=== PATIENT | male | born 1985 | race Caucasian/White ===

== ENCOUNTER 2017-02-09 12:11 | Emergency (ER) | payer OTHER ==
[~2017-02-09 12:11] MED LIST: ALPR.5 PO; OMEP20TA PO; PANT40TA3 PO
[2017-02-09] MEDS ORDERED: IBUPROFEN 800 MG TAB PO ONE (12:30)
--- NOTE | 2017-02-09 12:41 | PD ---
HPI Chief Complaint: Injury Time Seen by Provider: 12:26 Travel History International Travel<30 days: No Contact w/Intl Traveler<30days: No Traveled to known affect area: No History of Present Illness HPI This 31-year-old male, [employer] employee, with complaint of left great toe pain and bleeding after a cooling machine fell over injuring his toe. Denies paresthesias, loss of sensation to the affected toe. Has not taken any medication or drainage went to alleviate his symptoms. Toe is bandaged and bleeding is controlled. Up-to-date on tetanus vaccination. Allergies to amoxicillin. Has no medical complaints. No other modifying factors or associated signs and symptoms. PFSH Past Medical History Medical History: Denies Significant Hx Past Surgical History Surgical History: No Previous Surgery Social History Alcohol Use: Yes Tobacco Use: No Allergies-Medications (Allergen,Severity, Reaction): Coded Allergies: amoxicillin (Unverified Allergy, Unknown, 01/14/17) Reported Meds & Prescriptions Reported Meds & Active Scripts Active Ibuprofen 800 Mg Tab 800 Mg PO Q6HR PRN Pantoprazole (Pantoprazole Sodium) 40 Mg Tab 40 Mg PO DAILY Reported Omeprazole 20 Mg Tab 20 Mg PO DAILY Xanax (Alprazolam) 0.5 Mg Tab 0.5 Mg PO Q4H PRN Review of Systems Except as stated in HPI: all other systems reviewed are Neg Physical Exam Narrative GENERAL: Well-nourished, well-developed male patient, in no acute distress SKIN: Warm and dry. HEAD: Atraumatic. Normocephalic. EYES: Pupils equal and round. No scleral icterus. No injection or drainage. ENT: Mucosa pink and moist. Airway patent. NECK: Trachea midline. CARDIOVASCULAR: Regular rate. RESPIRATORY: No accessory muscle use. GASTROINTESTINAL: Flat. MUSCULOSKELETAL: Left great toe with subungual hematoma noted with minimal amount of bright red drainage around the toenail; toenail intact; sensory intact ; less than 3 second cap refill; no obvious deformity; without erythema, edema. Left lower extremities supple and non-tense with 2+ pedal pulse and sensory intact. No obvious deformities. No clubbing. No cyanosis. No edema. NEUROLOGICAL: Awake and alert. Oriented 3. No obvious cranial nerve deficits. Motor grossly within normal limits. Normal speech. PSYCHIATRIC: Appropriate mood and affect; insight and judgment normal. Data Data Orders Orders Ibuprofen (Motrin) (02/09/17 12:30) Toe (Min 2vws) (02/09/17 ) MDM Medical Decision Making Medical Screen Exam Complete: Yes Emergency Medical Condition: Yes Medical Record Reviewed: Yes Differential Diagnosis Toe contusion, subungual hematoma, toe fracture Narrative Course 31-year-old male with left great toe injury and subungual hematoma. Ibuprofen administered in the ER. Left great toe x-ray ordered. 1304: Left great toe x-ray with no acute findings. I offered the patient a postop shoe for support and crutches and he declined. Wound care provided. Ibuprofen prescribed for home. Instructed patient to follow up with primary care provider. Patient verbalizes understanding and agreement with treatment plan. Patient is medically cleared and stable for discharge. Discussed reasons to return to the emergency department. Patient agrees with treatment plan. The patients vital signs are stable and the patient is stable for outpatient follow-up and treatment. Patient discharged home, stable and in no acute distress. Diagnosis Primary Impression: Toe injury Qualified Codes: S99.922A - Unspecified injury of left foot, initial encounter Additional Impression: Hematoma, subungual, great toe, left Qualified Codes: S90.212A - Contusion of left great toe with damage to nail, initial encounter Referrals: Roya ([facility] [place] Human Resources Primary Care Physician Patient Instructions: Crutch Instructions (ED), General Instructions Departure Forms: Tests/Procedures, Work Release Enter return to work date: Feb 09, 2017 Additional Instructions: Tylenol or ibuprofen instructed not needed for pain and inflammation Ice to affected toe for pain and inflammation Avoid aggravating activity Follow-up with primary care provider Return to the emergency department immediately with worsening of symptoms Med/Other Pt SpecificInfo: Prescription(s) given Scripts Ibuprofen (Ibuprofen) 800 Mg Tab 800 MG PO Q6HR Y for PAIN, #30 TAB 0 Refills Prov: Ana Lee 02/09/17 Disposition: 01 DISCHARGE HOME Condition: Stable Ana Lee Feb 09, 2017 12:41
--- NOTE | 2017-02-09 13:00 | RADRPT ---
EXAM DATE/TIME: 02/09/2017 12:34 [facility] COMPARISON: No previous studies available for comparison. INDICATIONS : Crushing injury to left great toe. MEDICAL HISTORY : None. SURGICAL HISTORY : None. ENCOUNTER: Initial ACUITY: 1 day PAIN SCORE: 6/10 LOCATION: Left hallux FINDINGS: Examination of the first digit of the left foot demonstrates no evidence of fracture or dislocation. No radiopaque foreign bodies are seen. The soft tissues are intact. CONCLUSION: No evidence of fracture or dislocation. Vern Zaidi MD on February 09, 2017 at 12:59 Board Certified Radiologist. This report was verified electronically.
[2017-02-09] MEDS ORDERED: IBUP800T23 PO (13:05)
== END 2017-02-09 13:12 | disposition home or self-care (01) ==
LOC: NEPK 12:11
DX: S90.212A Contusion of left great toe with damage to nail, initial encounter (principal); W20.8XXA Other cause of strike by thrown, projected or falling object, initial encounter
CPT/HCPCS: 73660; 99283

== ENCOUNTER 2017-07-19 12:16 | Emergency (ER) | payer OTHER ==
[~2017-07-19] VITALS: Ht 180.3 cm; Wt 87.0 kg
[~2017-07-19 12:16] MED LIST changes: +IBUP1TAB7 PO; -OMEP20TA PO; +OMEP20TA93 PO
[2017-07-19 12:18] VITALS: BP 120/76; PULSE 68; RESP 12; TEMP 99; O2SAT 98
--- NOTE | 2017-07-19 13:01 | PD ---
HPI Chief Complaint: Dizziness Time Seen by Provider: 13:01 Travel History International Travel<30 days: No Contact w/Intl Traveler<30days: No Traveled to known affect area: No History of Present Illness HPI 32-year-old male presents the emergency Department with worsening dizzy spells, with nausea and dry heaves today. Patient states no fever but is noted to have a temperature of 99 orally in triage today. Patient states mild headache in the posterior scalp yesterday afternoon. Patient states this started last Friday and has progressively worsened over the past week. He states he gets vertiginous symptoms with certain movements, which has gotten worse in the past several days. Patient states no headache currently. He denies PFSH Past Medical History Anxiety: Yes Heart Rhythm Problems: Yes (questional SVT) GERD: Yes Tetanus Vaccination: Unknown Influenza Vaccination: Yes Past Surgical History Appendectomy: Yes Eye Surgery: Yes (lasik) Social History Alcohol Use: Yes (occasional) Tobacco Use: Yes (cigar on occasion) Substance Use: No Allergies-Medications (Allergen,Severity, Reaction): Coded Allergies: amoxicillin (Unverified Allergy, Unknown, 07/19/17) Reported Meds & Prescriptions Reported Meds & Active Scripts Active Ibuprofen 800 Mg Tab 800 Mg PO Q6HR PRN Reported Omeprazole 20 Mg Tab 20 Mg PO DAILY Review of Systems Except as stated in HPI: all other systems reviewed are Neg General / Constitutional: No: Fever Eyes: No: Visual changes HENT: Positive: Vertigo, No: Headaches, Lightheadedness, Sore Throat, Rhinitis , Rhinorrhea, Congestion, Nosebleed, Neck Stiffness, Neck Pain, Dental Difficulties, Earache Cardiovascular: No: Chest Pain or Discomfort Respiratory: No: Shortness of Breath Gastrointestinal: No: Abdominal Pain Genitourinary: No: Dysuria Musculoskeletal: No: Pain Skin: No Rash Neurologic: No: Weakness Psychiatric: No: Depression Endocrine: No: Polydipsia Hematologic/Lymphatic: No: Easy Bruising Physical Exam Narrative GENERAL: Patient appears well SKIN: Warm and dry. Normal color. Normal turgor. No rash HEAD: Atraumatic. Normocephalic. No sinus tenderness to percussion or palpation EYES: Pupils equal and round. No scleral icterus. No injection or drainage. Patient has reproducible nystagmus which is right going looking to the left, and when he looks up. ENT: No nasal bleeding or discharge. Mucous membranes pink and moist. TMs are clear bilaterally. Posterior pharynx is unremarkable. No signs of postnasal drip or sinusitis. NECK: Trachea midline. Supple and nontender. Patient is able to put his chin to his chest without difficulty. CARDIOVASCULAR: Regular rate and rhythm. RESPIRATORY: No accessory muscle use. Clear to auscultation. Breath sounds equal bilaterally. GASTROINTESTINAL: Abdomen soft, non-tender, nondistended. Hepatic and splenic margins not palpable. MUSCULOSKELETAL: Extremities without clubbing, cyanosis, or edema. No obvious deformities. NEUROLOGICAL: Awake and alert. No obvious cranial nerve deficits. Motor grossly within normal limits. Five out of 5 muscle strength in the arms and legs. Normal speech. PSYCHIATRIC: Appropriate mood and affect; insight and judgment normal. Data Data Last Documented VS Vital Signs Date Time Temp Pulse Resp B/P (MAP) Pulse Ox O2 Delivery O2 Flow Rate FiO2 07/19/17 14:00 58 13 117/61 (79) 62 12 121/73 (89) 64 13 127/81 (96) 07/19/17 12:18 99.0 98 Orders Orders Complete Blood Count With Diff (07/19/17 13:10) Comprehensive Metabolic Panel (07/19/17 13:10) Ecg Monitoring (07/19/17 13:10) Iv Access Insert/Monitor (07/19/17 13:10) Oximetry (07/19/17 13:10) Meclizine (Antivert) (07/19/17 13:15) Ondansetron Inj (Zofran Inj) (07/19/17 13:15) Sodium Chloride 0.9% Flush (Ns Flush) (07/19/17 13:15) Sodium Chlor 0.9% 1000 Ml Inj (Ns 1000 M (07/19/17 13:10) Orthostatic Vital Signs (07/19/17 13:10) Influenzae A/B Antigen (07/19/17 13:18) Labs Laboratory Tests Test 07/19/17 13:30 White Blood Count 5.3 TH/MM3 Red Blood Count 4.89 MIL/MM3 Hemoglobin 14.5 GM/DL Hematocrit 41.6 % Mean Corpuscular Volume 85.1 FL Mean Corpuscular Hemoglobin 29.7 PG Mean Corpuscular Hemoglobin Concent 34.9 % Red Cell Distribution Width 13.3 % Platelet Count 183 TH/MM3 Mean Platelet Volume 8.1 FL Neutrophils (%) (Auto) 66.5 % Lymphocytes (%) (Auto) 25.7 % Monocytes (%) (Auto) 5.3 % Eosinophils (%) (Auto) 1.9 % Basophils (%) (Auto) 0.6 % Neutrophils # (Auto) 3.5 TH/MM3 Lymphocytes # (Auto) 1.4 TH/MM3 Monocytes # (Auto) 0.3 TH/MM3 Eosinophils # (Auto) 0.1 TH/MM3 Basophils # (Auto) 0.0 TH/MM3 CBC Comment DIFF FINAL Differential Comment Blood Urea Nitrogen 14 MG/DL Creatinine 1.14 MG/DL Random Glucose 92 MG/DL Total Protein 7.2 GM/DL Albumin 4.3 GM/DL Calcium Level 8.7 MG/DL Alkaline Phosphatase 73 U/L Aspartate Amino Transf (AST/SGOT) 16 U/L Alanine Aminotransferase (ALT/SGPT) 24 U/L Total Bilirubin 1.5 MG/DL Sodium Level 139 MEQ/L Potassium Level 4.2 MEQ/L Chloride Level 104 MEQ/L Carbon Dioxide Level 31.1 MEQ/L Anion Gap 4 MEQ/L Estimat Glomerular Filtration Rate 74 ML/MIN MDM Medical Decision Making Medical Screen Exam Complete: Yes Emergency Medical Condition: Yes Differential Diagnosis Upper respiratory infection. Influenza. Vestibulitis. Stroke. Benign positional vertigo. Narrative Course Patient is medically stable at time of exam per Labs ordered including CBC, CMP, and rapid influenza. IV access is obtained the patient is given 1000 mL normal saline bolus in addition to Zofran 4 mg IV Patient is given 25 mg meclizine p.o. Patient discussed with Dr. Delgadillo and CT scan is not felt warranted Labs are all within normal limits. Patient will be treated for vestibulitis. He is given a prescription for Zofran 4 mg every 6 hours as needed #12 Patient also given meclizine 25 mg 1 every 6 hours as needed #20. Patient should follow-up with his primary care physician or neurologist as needed. Patient can return to the emergency department with worsening symptoms if necessary. Diagnosis Primary Impression: Benign positional vertigo Qualified Codes: H81.10 - Benign paroxysmal vertigo, unspecified ear Referrals: Primary Care Physician Patient Instructions: Benign Paroxysmal Positional Vertigo (ED), General Instructions Departure Forms: Work Release Enter return to work date: Jul 20, 2017 Additional Instructions: Labs are all within normal limits. Patient will be treated for vestibulitis. He is given a prescription for Zofran 4 mg every 6 hours as needed #12 Patient also given meclizine 25 mg 1 every 6 hours as needed #20. Patient should follow-up with his primary care physician or neurologist as needed. Patient can return to the emergency department with worsening symptoms if necessary. Med/Other Pt SpecificInfo: Prescription(s) given Disposition: 01 DISCHARGE HOME Condition: Stable Cory Trejo Jul 19, 2017 13:01
[2017-07-19] MEDS ORDERED: SODIUM CHLOR 0.9% 1000 ML INJ 1,000 ML IV ONE (13:10)
[2017-07-19] MEDS ORDERED: SODIUM CHLORIDE 0.9% FLUSH 10 ML FLUSH IVF PRN (13:15)
[2017-07-19] MEDS ORDERED: ONDANSETRON HCL 4 MG/2 ML VIAL IVP ONE (13:15)
[2017-07-19] MEDS ORDERED: MECLIZINE HCL 25 MG TAB PO ONE (13:15)
[2017-07-19 13:58] LABS: AUTOMATED NEUTROPHIL # 3.5 TH/MM3 (1.8-7.7); BASOPHIL % 0.6 % (0.0-2.0); EOSINOPHIL # 0.1 TH/MM3 (0-0.4); EOSINOPHIL % 1.9 % (0.0-4.0); HEMATOCRIT 41.6 % (39.0-51.0); HEMOGLOBIN 14.5 GM/DL (13.0-17.0); LYMPH % 25.7 % (9.0-44.0); LYMPHOCYTE # 1.4 TH/MM3 (1.0-4.8); MEAN CELL VOLUME 85.1 FL (80.0-100.0); MEAN CORPUSCULAR HEMOGLOBIN 29.7 PG (27.0-34.0); MEAN CORPUSCULAR HGB CONC 34.9 % (32.0-36.0); MEAN PLATELET VOLUME 8.1 FL (7.0-11.0); MONO % 5.3 % (0.0-8.0); MONOCYTE # 0.3 TH/MM3 (0-0.9); NEUT % 66.5 % (16.0-70.0); PLATELET COUNT 183 TH/MM3 (150-450); RED BLOOD COUNT 4.89 MIL/MM3 (4.50-5.90); RED CELL DISTRIBUTION WIDTH 13.3 % (11.6-17.2); WHITE BLOOD COUNT 5.3 TH/MM3 (4.0-11.0)
[2017-07-19 14:00] VITALS: BP_SYST 117; BP_SYST 121; BP_SYST 127; BP_DIAS 61; BP_DIAS 73; BP_DIAS 81; RESP 12; RESP 13
--- NOTE | 2017-07-19 14:13 | PD ---
Data Data Last Documented VS Vital Signs Date Time Temp Pulse Resp B/P (MAP) Pulse Ox O2 Delivery O2 Flow Rate FiO2 07/19/17 14:00 58 13 117/61 (79) 62 12 121/73 (89) 64 13 127/81 (96) 07/19/17 12:18 99.0 98 Orders Orders Complete Blood Count With Diff (07/19/17 13:10) Comprehensive Metabolic Panel (07/19/17 13:10) Ecg Monitoring (07/19/17 13:10) Iv Access Insert/Monitor (07/19/17 13:10) Oximetry (07/19/17 13:10) Meclizine (Antivert) (07/19/17 13:15) Ondansetron Inj (Zofran Inj) (07/19/17 13:15) Sodium Chloride 0.9% Flush (Ns Flush) (07/19/17 13:15) Sodium Chlor 0.9% 1000 Ml Inj (Ns 1000 M (07/19/17 13:10) Orthostatic Vital Signs (07/19/17 13:10) Influenzae A/B Antigen (07/19/17 13:18) Ed Discharge Order (07/19/17 14:58) Labs Laboratory Tests Test 07/19/17 13:30 White Blood Count 5.3 TH/MM3 Red Blood Count 4.89 MIL/MM3 Hemoglobin 14.5 GM/DL Hematocrit 41.6 % Mean Corpuscular Volume 85.1 FL Mean Corpuscular Hemoglobin 29.7 PG Mean Corpuscular Hemoglobin Concent 34.9 % Red Cell Distribution Width 13.3 % Platelet Count 183 TH/MM3 Mean Platelet Volume 8.1 FL Neutrophils (%) (Auto) 66.5 % Lymphocytes (%) (Auto) 25.7 % Monocytes (%) (Auto) 5.3 % Eosinophils (%) (Auto) 1.9 % Basophils (%) (Auto) 0.6 % Neutrophils # (Auto) 3.5 TH/MM3 Lymphocytes # (Auto) 1.4 TH/MM3 Monocytes # (Auto) 0.3 TH/MM3 Eosinophils # (Auto) 0.1 TH/MM3 Basophils # (Auto) 0.0 TH/MM3 CBC Comment DIFF FINAL Differential Comment Blood Urea Nitrogen 14 MG/DL Creatinine 1.14 MG/DL Random Glucose 92 MG/DL Total Protein 7.2 GM/DL Albumin 4.3 GM/DL Calcium Level 8.7 MG/DL Alkaline Phosphatase 73 U/L Aspartate Amino Transf (AST/SGOT) 16 U/L Alanine Aminotransferase (ALT/SGPT) 24 U/L Total Bilirubin 1.5 MG/DL Sodium Level 139 MEQ/L Potassium Level 4.2 MEQ/L Chloride Level 104 MEQ/L Carbon Dioxide Level 31.1 MEQ/L Anion Gap 4 MEQ/L Estimat Glomerular Filtration Rate 74 ML/MIN [facility] Supervised Visit with MATT: Yes Narrative Course The history, exam, and medical decision-making in the associated mid-level provider note were completed with my assistance. I reviewed and agree with the findings presented. I attest that I had a [id number] encounter with the patient on the same day, and personally performed and documented my assessment and findings in the medical record. *My assessment and Findings: 32-year-old man presents to the emergency department complaining of vertigo symptoms, dizziness, intermittently, ongoing for a week or 2. Looks generally well. No stroke findings. No clear precipitant. Possibly BPPV but the timing and triggers does not line up completely. Vertiginous migraine also possible but seems less likely. Overall patient looks well. Would recommend supportive treatment meclizine. Outpatient follow-up. Scripts Meclizine (Meclizine) 25 Mg Tab 25 MG PO QID Y for VERTIGO, #20 TAB 0 Refills Prov: Manuel Delgadillo MD 07/19/17 Ondansetron (Zofran) 4 Mg Tab 4 MG PO Q6HR Y for NAUSEA OR VOMITING, #12 TAB 0 Refills Prov: Manuel Delgadillo MD 07/19/17 Manuel Delgadillo MD Jul 19, 2017 14:13
[2017-07-19 14:22] LABS: ALBUMIN 4.3 GM/DL (3.4-5.0); ALT (GPT) 24 U/L (12-78); AST (GOT) 16 U/L (15-37); BICARBONATE 31.1 MEQ/L (21.0-32.0); BLOOD UREA NITROGEN 14 MG/DL (7-18); CALCIUM 8.7 MG/DL (8.5-10.1); CHLORIDE 104 MEQ/L (98-107); CREATININE 1.14 MG/DL (0.60-1.30); GLOMERULAR FILTRATION RATE 74 ML/MIN (>89); GLUCOSE,RANDOM 92 MG/DL (74-106); SODIUM (NA) 139 MEQ/L (136-145)
[2017-07-19 14:24] LABS: ALKALINE PHOSPHATASE 73 U/L (45-117); TOTAL BILIRUBIN ADULT 1.5 MG/DL (0.2-1.0); TOTAL PROTEIN 7.2 GM/DL (6.4-8.2)
[2017-07-19] MEDS ORDERED: ZOFR4TAB PO (14:58)
[2017-07-19] MEDS ORDERED: MECL-62 PO (14:58)
== END 2017-07-19 15:13 | disposition home or self-care (01) ==
LOC: NEPD 12:16
DX: H81.10 Benign paroxysmal vertigo, unspecified ear (principal); F41.9 Anxiety disorder, unspecified; K21.9 Gastro-esophageal reflux disease without esophagitis; F17.290 Nicotine dependence, other tobacco product, uncomplicated; Z88.0 Allergy status to penicillin; Z79.899 Other long term (current) drug therapy
CPT/HCPCS: 80053; 85025; 87804; 96361; 96374; 99284; J2405; J7030